=== PATIENT | male | born 1975 | race Hispanic/Latino ===

== ENCOUNTER 2024-05-21 07:48 | Emergency (ER) | payer OTHER ==
[~2024-05-21] VITALS: Ht 175.3 cm; Wt 100.0 kg
[2024-05-21] VITALS (10 sets, daily range): BP systolic 107–132; BP diastolic 74–81
[2024-05-21] MEDS ORDERED: ORPHENADRINE CITRATE 30 MG/ML AMP IM ONE (09:00)
[2024-05-21] MEDS ORDERED: KETOROLAC TROMETHAMINE 30 MG/ML SDV IM ONE (09:00)
[2024-05-21] MEDS ORDERED: ORPHENADRINE100 MG PO (09:01)
[2024-05-21] MEDS ORDERED: NABUMETONE750 MG PO (09:01)
[2024-05-21] MEDS ORDERED: CYCLOBENZAPRINE HCL 5 MG TAB PO ONE (09:15)
== END 2024-05-21 09:41 | disposition home or self-care (01) | DRG 563 ==
LOC: ED 07:48
DX: S86.912A Strain of unspecified muscle(s) and tendon(s) at lower leg level, left leg, initial encounter (principal); X50.0XXA Overexertion from strenuous movement or load, initial encounter; Y93.H2 Activity, gardening and landscaping; Y92.007 Garden or yard of unspecified non-institutional (private) residence as the place of occurrence of the external cause